=== PATIENT | male | born 1995 | race Caucasian/White ===

== ENCOUNTER 2017-09-07 08:56 | Inpatient (IN) | payer OTHER ==
[2017-09-06 14:23] VITALS: BMI 50.2
[2017-09-07] MEDS ORDERED: ONDANSETRON 4 MG/2 ML VIAL IVPUSH PRN ×2 (10:36→13:54)
[2017-09-07] MEDS ORDERED: HYDROmorphone HCL CARPU-JECT 1 MG/1 ML DISP.SYRIN IVPUSH PRN (10:36)
[2017-09-07] MEDS ORDERED: fentaNYL CITRATE 250 MCG/5 ML VIAL ONE (10:39)
[2017-09-07] MEDS ORDERED: MIDAZOLAM HCL 2 MG/2 ML SINGLE DOSE VIAL ONE (10:39)
[2017-09-07] MEDS ORDERED: LIDOCAINE HCL/PF 2% SDV 5ML VIAL ONE (10:40)
[2017-09-07] MEDS ORDERED: PROPOFOL 20 ML ONE ×2 (10:40)
[2017-09-07] MEDS ORDERED: SODIUM CHLORIDE 0.9% P/F 10 ML VIAL IJ ONE (10:42)
[2017-09-07] MEDS ORDERED: LACTATED RINGERS SOLUTION 1,000 ML IV SCH (10:45)
[2017-09-07] MEDS ORDERED: BUPIVACAINE HCL/PF 0.5% (5MG/ML) 10 ML VIAL ONE (11:49)
[2017-09-07] MEDS ORDERED: BUPIVACAINE HCL/PF 0.5% (5MG/ML) 10 ML VIAL IJ ONE (12:00)
[2017-09-07] MEDS ORDERED: ceFAZolin SODIUM 1 GM VIAL IVPB ONE (12:47)
[2017-09-07] MEDS ORDERED: NEOSTIGMINE METHYLSULFATE 0.5 MG/ML - 10 ML MDV ONE (13:00)
[2017-09-07] MEDS ORDERED: GLYCOPYRROLATE 0.2 MG/1 ML VIAL ONE (13:00)
[2017-09-07] MEDS ORDERED: HYDROmorphone HCL/PF 1 MG/ML VIAL (FOR PYXIS CHARGING ONLY) ONE (13:45)
[2017-09-07] MEDS ORDERED: SODIUM CHLORIDE 1,000 ML IV SCH (14:00)
--- NOTE | 2017-09-07 14:00 | OP ---
Operative Note - Note: Operative Date: 09/07/17 Pre-Operative Diagnosis: Morbid Obesity. Elevated LFT Operation: Laparoscopic Vertical Sleeve Gastrectomy. Wedge Biopsy of Liver. Diagnostic Laparoscopy Findings: Greater curve Sleeve Gastrectomy performed with number [address] Post-Operative Diagnosis: Same as Pre-op (hepatomegaly) Surgeon: Chandler Smith Veneer Supervisor: Yaya Camejo Anesthesia: General Specimens Removed: Greater curve of stomach. Wedge biopsy left lobe of liver Estimated Blood Loss (mls): 50 Operative Report Dictated: Yes
--- NOTE | 2017-09-07 14:33 | OP ---
Operative Note - Note: Operative Date: 09/07/17 Pre-Operative Diagnosis: Evaluate for leak/obstruction after vertical sleeve gastrectomy Operation: Upper endoscopy/EGD Findings: Extensive ectasia like lesion throughout the gastric sleeve and antrum Pictures taken Post-Operative Diagnosis: Other (No leak/obstruction) Surgeon: Yaya Camejo Anesthesia: General Specimens Removed: None Estimated Blood Loss (mls): 0 Operative Report Dictated: Yes
[2017-09-07] MEDS: METOCLOPRAMIDE HCL INJECTION 10 MG/2 ML VIAL IVPUSH SCH ×2 (14:45→21:27)
[2017-09-07 15:39] LABS: MCHC 35.5 g/dl (32.0-35.9); MEAN CELL VOLUME 87.5 fl (80-96); MEAN PLT VOLUME 8.1 fl (7.5-11.1); PLATELET COUNT 203 K/MM3 (134-434); RDW 13.2 % (11.9-15.9); WHITE BLOOD COUNT 10.7 K/mm3 (4.0-10.0)
[2017-09-07 16:17] LABS: ALBUMIN 3.8 g/dl (3.4-5.0); ALK PHOS 84 U/L (45-117); ANION GAP 9 (8-16); BILIRUBIN,TOTAL 0.6 mg/dL (0.2-1.0); CALCIUM 8.7 mg/dL (8.5-10.1); CO2 24 mmol/L (21-32); CREATININE 0.8 mg/dL (0.7-1.3); GLUCOSE,RANDOM 103 mg/dL (74-106); SGPT/ALT 63 U/L (12-78); TOT PROT 7.3 g/dl (6.4-8.2)
[2017-09-07 16:38] LABS: SGOT/AST 41 U/L (15-37)
[2017-09-07] MEDS: HYDROmorphone HCL CARPU-JECT 2 MG/1 ML DISP.SYRIN IVPUSH PRN ×2 (16:52→21:35)
[2017-09-07] MEDS: ENOXAPARIN NA (PORCINE) 40 MG/0.4 ML DISP.SYRIN SQ SCH (21:27)
[2017-09-08] MEDS: FAMOTIDINE IV 20 MG/12 ML VIAL IVPUSH SCH ×2 (00:46→11:02)
[2017-09-08] MEDS: METOCLOPRAMIDE HCL INJECTION 10 MG/2 ML VIAL IVPUSH SCH ×3 (03:08→15:03)
[2017-09-08] MEDS: HYDROmorphone HCL CARPU-JECT 2 MG/1 ML DISP.SYRIN IVPUSH PRN ×2 (06:38→11:12)
[2017-09-08 07:28] LABS: MCHC 34.6 g/dl (32.0-35.9); MEAN CELL VOLUME 86.6 fl (80-96); MEAN PLT VOLUME 7.6 fl (7.5-11.1); PLATELET COUNT 263 K/MM3 (134-434); RDW 13.1 % (11.9-15.9)
[2017-09-08 07:41] LABS: ALBUMIN 3.3 g/dl (3.4-5.0); ALK PHOS 76 U/L (45-117); ANION GAP 6 (8-16); CALCIUM 8.2 mg/dL (8.5-10.1); CO2 27 mmol/L (21-32); CREATININE 0.7 mg/dL (0.7-1.3); GLUCOSE,RANDOM 111 mg/dL (74-106); SGOT/AST 31 U/L (15-37); SGPT/ALT 60 U/L (12-78); TOT PROT 6.9 g/dl (6.4-8.2)
--- NOTE | 2017-09-08 10:37 | OP ---
DATE OF OPERATION: 09/07/2017 PREOPERATIVE DIAGNOSIS: 1. Morbid obesity. 2. Elevated liver function test. POSTOPERATIVE DIAGNOSIS: 1. Morbid obesity. 2. Elevated liver function test. 3. Hepatomegaly PROCEDURE PERFORMED: 1. Laparoscopic vertical sleeve gastrectomy. 2. Wedge biopsy of the left lobe of the liver. 3. Diagnostic laparoscopy. OPERATING SURGEON: Chandler Smith MD BUGGYMAN: Yaya Camejo MD ANESTHESIA: General. OPERATIVE PROCEDURE: The patient was brought into the operating room, placed on the OR table in supine position. All precautions were taken initially including padding for the back and the feet, and Venodyne boots were placed on both lower extremities. At that point, the abdomen was prepped and draped in the usual manner. A Veress needle was placed in the left upper quadrant, and a pneumoperitoneum was established. A No. 12 bladeless trocar was placed in the left upper quadrant. Through that trocar, a laparoscopic camera was placed. Under direct vision, a No. 15 bladeless trocar was placed in the midline in a supraumbilical position, and a No. 5 bladeless trocar in the right upper quadrant, and a No. 5 bladeless trocar below the left costal margin. A Yvette Liver Retractor was placed in the epigastrium to retract the left lobe of the liver. The left lobe was noted to be extremely enlarged and with a preoperative diagnosis of elevated LFT, it was decided that a liver biopsy would be performed. The electrocautery turned high, and then on the left lobe of the liver inferiorly. First, the capsule of the liver and then the parenchyma were dissected with the electrocautery until a wedge piece was taken, sent off the field to Pathology as specimen. Some minor bleeding was noted from the parenchyma, which was easily controlled with the electrocautery. At this point, the patient was then placed in 20-degree reverse Trendelenburg position. The pylorus was noted on the distal stomach, and 6 cm were measured proximally from there. Here, the operating surgeon lifted the stomach towards the anterior abdominal wall, and the cement tester assistant surgeon retracted the gastrocolic ligament inferiorly. The LigaSure device was used to dissect the gastrocolic ligament off the greater curve of the stomach. This continued in a superior and vertical direction until the final short gastric vessel between the superior pole spleen and the proximal fundus was divided. At this juncture, anesthesia was advanced to No. 40 bougie. With the bougie held along the lesser curve, a series of sebastian was performed with first two being black-load sebastian, 6 cm in length, along the bougie. This was followed by a series of purple-load sebastian until the final staple was applied in the left upper quadrant, and the greater curve was now completely detached from the lesser curve. It should be noted that prior to firing each staple, both the anterior and posterior blackmon were checked, and they were equal, and then, in the area of esophagogastric junction, approximately 1 to 1.5 cm serosa remained on the anterior and posterior surfaces. At this juncture, the cement tester assistant surgeon, Dr. Cameoj, scrubbed out of the operation and performed an upper endoscopy. The details of this will be described in his operative note, but it showed that there were no signs of any leakage from the staple line and no signs of any obstruction and with a clear path all the way to the antrum. At this juncture, the resected greater curve was removed through the No. 15 trocar sites and sent off the field as specimen. Under direct vision, all trocars were removed and pneumoperitoneum was released. All trocar sites received 0.25% Marcaine and were closed with 4-0 Biosyn in subcuticular fashion. The No. 15 trocar in the midline was first closed with 3-0 Vicryl in the subcutaneous tissue followed by 4-0 Biosyn in a subcuticular fashion. Dressings were applied. Patient awoke from anesthesia and transferred out of the operating room to the recovery room in stable condition. ANESTHESIA: General. SURGEON: Chandler Smith MD BUGGYMAN: Yaya Camejo MD EXPECTED BLOOD LOSS: 50 mL. Patient transferred to the recovery room in stable condition. Cody [id number]
[2017-09-08] MEDS: ENOXAPARIN NA (PORCINE) 40 MG/0.4 ML DISP.SYRIN SQ SCH (10:54)
--- NOTE | 2017-09-08 10:58 | OP ---
DATE OF OPERATION: 09/07/2017 PREOPERATIVE DIAGNOSIS: Intraoperative consultation for rule out leak or obstruction after vertical sleeve gastrectomy by Dr. Smith. REASON FOR PROCEDURE: This is a patient who is undergoing a vertical sleeve gastrectomy by Dr. Smith. After the stomach was transected, a request was made for an upper endoscopy to evaluate for a leak and/or obstruction. The endoscope was inserted into the patient's mouth. The entirety of the esophagus, GE junction, and stomach was inspected. No leak or obstruction was identified. There were noted to be, however, areas throughout the sleeves and antrum with what appeared to be ectasia and/or telangiectasias throughout. Pictures were taken, and description of the findings was explained to the patient in the recovery room. It was unclear what the etiology of these circular disk-like vascular structures was, but they were noted to be throughout the entirety of the stomach. At this point, the stomach was suctioned. The endoscope removed. We will follow up pathology for final results. The patient tolerated the procedure well. The remainder of the procedure was continued by Dr. Smith. JUANA HUNTER M.D. [id number]
[2017-09-08 14:28] VITALS: BP 138/79; PULSE 101; TEMP 98
[2017-09-08] MEDS ORDERED: ACETAMINOPHEN 325 MG TABLET (FP) PO PRN (14:33)
[2017-09-08] MEDS ORDERED: oxyCODONE HCL 5 MG TABLET PO PRN (14:33)
[2017-09-08] MEDS ORDERED: SODIUM CHLORIDE 1,000 ML IV SCH (14:45)
--- NOTE | 2017-09-08 14:49 | PN ---
Progress Note (short form) - Note Progress Note: POD #1 - s/p gastric sleeve under GA. VSS. Pt. doing well, resting comfortably in bed. No complaints. May be discharged later today. No apparent anesthetic complications noted.
--- NOTE | 2017-09-08 14:51 | PN ---
Progress Note (short form) - Note Progress Note: POD#1 Afebrile, VSS Pulse-80-90 Pt ambulating well No N/V UGI- ? leak of contrast distal stomach CT Scan- no leak, no obstruction P/E- incisions clean,dry LE- no swelling noted Pt tolerating clear liquids- 2 oz po TID WBC-15.0 H/H-13.3/38.3 P- PO clear liquids 2 OZ PO TID Cont DVT prophylaxis Continue ambulation Continue incentive spirometer
--- NOTE | 2017-09-12 18:26 | PATH ---
Surgical Pathology Report Patient Name: KAM WAGONER Med. Rec. #: [id number] /Age/Gender: 1995 (Age: 22) / M Account: [id number] Location: 4 W TELEMETRY U Taken: 09/07/2017 Received: 09/08/2017 Reported: 09/12/2017 Physicians: Chandler Smith M.D. Specimen(s) Received A: GREATER CURVE OF THE STOMACH B: LIVER BIOPSY Clinical History Morbid obesity Final Diagnosis A. STOMACH, GREATER CURVATURE, LAPAROSCOPIC VERTICAL SLEEVE GASTRECTOMY: PORTION OF STOMACH WITH MODERATE CHRONIC GASTRITIS. IMMUNOHISTOCHEMICAL STAIN FOR H. PYLORI IS NEGATIVE. B. LIVER, BIOPSY: MODERATE PATCHY STEATOSIS (~25-30%). NO INCREASED FIBROSIS OR IRON ON PERFORMED SPECIAL STAINS (TRICHROME AND IRON). SEE COMMENT. Comment: Findings are consistent with fatty liver disease. Fatty liver may be associated with diabetes mellitus, metabolic syndromes, obesity, medications, alcohol use, etc. Suggest clinical and laboratory correlation. Electronically Signed Ellen Napier M.D. Gross Description A. Received in formalin, labeled "greater curvature of stomach," is a 119 gram, 17.5 x 3.5 x 3.0 cm. portion of stomach with a stapled margin of resection. The serosa is becerra-sands with minimal attached fat. The mucosa is becerra-pink with normal folds. No mucosal masses are identified. [employer] sections are submitted in one cassette. B. Received in formalin labeled "liver biopsy," is a 1.5 x 1.0 x 0.4 cm becerra, irregular portion of soft tissue, consistent with a portion of liver. The specimen is bisected and entirely submitted in one cassette. 09/08/2017 saudi09/08/2017
== END 2017-09-08 17:09 | disposition home or self-care (01) | DRG 621 ==
LOC: JSAMEDAYSX 08:56 → J4W 16:16
PROVIDERS: ADMIT Surgery; ATTEND Surgery
PROC: 0FB24ZX Excision of Left Lobe Liver, Percutaneous Endoscopic Approach, Diagnostic (ICD-10-PCS; 2017-09-07)
PROC: 0DB64Z3 Excision of Stomach, Percutaneous Endoscopic Approach, Vertical (ICD-10-PCS; principal; 2017-09-07 10:00)
DX: E66.01 Morbid (severe) obesity due to excess calories (principal); Z68.43 Body mass index [BMI] 50.0-59.9, adult; R16.0 Hepatomegaly, not elsewhere classified; R94.5 Abnormal results of liver function studies
CPT/HCPCS: 36415; 74150-TC; 74241-TC; 80053; 85027; 88305-TC; 94010